=== PATIENT | male | born 1990 | race Caucasian/White ===

== ENCOUNTER 2021-11-22 03:17 | Emergency (ER) | payer SELFPAY ==
[~2021-11-22] VITALS: Ht 167.6 cm; Wt 70.0 kg
[2021-11-22 03:23] VITALS: BP 145/67
[2021-11-22] MEDS ORDERED: BACITRACIN ZINC OINT UDPKT TOP ONE (04:30)
[2021-11-22] MEDS ORDERED: TETANUS, DIPHTHERIA, PERTUSSIS VAC/PF 0.5ML (>10YR OLD) IM ONE (04:30)
[2021-11-22] MEDS ORDERED: LIDOCAINE HCL/PF 1% 10 MG/ML 5ML VIAL INFIL ONE (04:30)
[2021-11-22] MEDS ORDERED: LIDOCAINE HCL 1% 20ML VIAL (Pyxis) INJ INL NR (05:00)
== END 2021-11-22 06:44 | disposition home or self-care (01) ==
LOC: ER 03:17
DX: S00.83XA Contusion of other part of head, initial encounter (principal); F10.129 Alcohol abuse with intoxication, unspecified; V49.49XA Driver injured in collision with other motor vehicles in traffic accident, initial encounter; Y93.89 Activity, other specified; Y92.89 Other specified places as the place of occurrence of the external cause; Y99.8 Other external cause status; Y90.8 Blood alcohol level of 240 mg/100 ml or more
CPT/HCPCS: 36415; 70450; 70486; 72125; 80320; 90471; 90715; 99284; J3490; Z7610; G0480